=== PATIENT | female | born 1950 | race Caucasian/White ===

== ENCOUNTER 2017-03-14 12:54 | Emergency (ER) | payer MEDICARE ==
[~2017-03-14] VITALS: Ht 162.6 cm; Wt 110.0 kg
[~2017-03-14 12:54] MED LIST: CELEBREX200 MG PO; CIPRO500 MG OR; CIPROFLOXACN500 MG PO; HYDROCODONE/ACE1 TAB PO; LEVOTHROID88 MCG PO; MEDDOSEPAK OR; METRONIDAZOL500 MG PO; NORCO1 TAB PO; NYQUIL COLD & FLU PO; ULTRAM50 MG OR
[2017-03-14] MEDS ORDERED: ZPAK PO ×2 (13:02→14:41)
[2017-03-14 13:59] LABS: HEMATOCRIT 37.6 % (37.0-47.0); HEMOGLOBIN 12.4 g/dl (12.0-16.0); IMMATURE GRANULOCYTES 0.4 % (0.0-1.0); MEAN CELL VOLUME 88.1 fL CALC (80.0-100.0); NEUT# 12.27 thou/uL (2.00-7.15); RED BLOOD COUNT 4.27 mill/uL (4.20-5.60); RED CELL DISTRI WIDTH 13.1 % (11.5-15.5)
[2017-03-14 14:24] LABS: ALBUMIN 4.1 g/dL (3.2-5.0); ALKALINE PHOSPHATASE 112 u/l (38-126); ANION GAP 14 (6-22 (CALC)); BILIRUBIN, TOTAL 0.6 mg/dL (0.0-1.4); BUN 6 mg/dL (8-23); BUN/CREATININE RATIO 10 (12-20 (CALC)); CALCIUM 9.2 mg/dL (8.4-10.2); CARBON DIOXIDE 33 mmol/l (22-30); CHLORIDE 96 mmol/l (95-108); CREATININE 0.6 mg/dL (0.5-1.0); GFR > 60 ML/MIN (>=60 (CALC)); GFR FOR AFR.AMER. > 60 ML/MIN (>=60 (CALC)); GLUCOSE 106 mg/dL (82-115); POTASSIUM 3.5 mmol/l (3.5-5.1); SGOT/AST 37 u/l (9-36); SGPT/ALT 35 u/l (11-66); SODIUM 139 mmol/l (137-146); TOTAL PROTEIN 8.1 g/dL (6.3-8.2)
[2017-03-14 14:34] LABS: MYOGLOBIN 56 ng/mL (0 - 62)
[2017-03-14] MEDS ORDERED: PREDNISONE10 MG PO (14:41)
[2017-03-14] MEDS ORDERED: VENTOLIN HFA IN (14:41)
[2017-03-14] MEDS ORDERED: TYLENOL # 31 TA1 PO (14:44)
[2017-03-14 15:03] VITALS: BP 152/77
== END 2017-03-14 15:10 | disposition home or self-care (01) ==
LOC: ED 12:54
PROVIDERS: Emergency Medicine
DX: J20.9 Acute bronchitis, unspecified (principal); R06.02 Shortness of breath